=== PATIENT | female | born 1995 | race Caucasian/White ===

== ENCOUNTER 2020-05-25 01:47 | Inpatient (IN) | payer OTHER ==
[2020-05-25] VITALS (12 sets, daily range): BP systolic 93–117; BP diastolic 55–78; PULSE 71–116; TEMP 97.6–98.2
[~2020-05-25] VITALS: Ht 154.9 cm; Wt 55.0 kg
--- NOTE | 2020-05-25 01:45 | NUR ---
PT HERE PER EMS AFTER PRECIPITOUS AT HOME IN BATHROOM WITH PRESENT. PLACENTA IS UNDELIVERED. HOLDS CRYING VIGOROUS BABY.PT ALERT AND RESPONSIVE TO HER NAME. DR ESPOSITO HERE TO ATTEND BABY NOW HANDED OFF TO HER.MODERATE AMT OF BRIGHT RED BLOOD FROM PT VAGINALLY - EXPERIENCING INTENSE BACKACHE VS /-[id number] TOBAR HERE - BED APART FOR EXAM, PLACENTA- OXYTOCIN DRIP STARTED. FUNDUS FIRM 0340 PT HAS RED CIRCULAR RASH ON RT CHEEK, BACK AND NECK. SANDWICHES SEERVED. CORD STAT OBTAINED. LAB CALLED FOR ADMIT WORK.
[2020-05-25] MEDS ORDERED: MOTRIN 800800 MG/TAB PO (02:12)
[2020-05-25 06:27] LABS: BASO % 0.2 % (0.0-2.0); GRAN # 13.4 (1.4-6.5); GRAN % 89.8 % (42.2-75.2); LYMPH # 0.6 (1.2-3.4); LYMPH % 4.3 % (20.0-51.0); MEAN CELL VOLUME 88 fl (80.0-100.0); MEAN CORPUSCULAR HGB CONC 35 g/dl (33.0-37.0); MEAN PLATELET VOLUME 10.4 fl (7.4-10.4); MONO # 0.8 (0.1-0.6); MONO % 5.3 % (1.7-9.3); PLATELET COUNT 174 K/mm3 (130-400); RED BLOOD COUNT 3.14 M/mm3 (4.10-5.30); REDCELL DISTRIBUTION WIDTH-CV 13.1 % (11.5-14.5)
[2020-05-25 06:38] LABS: HEMATOCRIT 27.5 % (37.0-47.0); HEMOGLOBIN 9.5 g/dl (12.5-16.0); MEAN CORPUSCULAR HEMOGLOBIN 30 pg (27.0-31.0)
--- NOTE | 2020-05-25 10:30 | NUR ---
Verified negative COVID-19 test result from [facility].
[2020-05-26 08:00] VITALS: BP 93/62; PULSE 61; TEMP 97.8
--- NOTE | 2020-05-26 12:05 | NUR ---
Initial visit; Patient with nurse, Wrapper Sizer congratulated patient for of daughter and left a prayer card with the intention of returning if patient so chooses.
--- NOTE | 2020-05-26 12:56 | NUR ---
[facility] responded to case management social worker consult. HILARIO collaborated with RN who advised patient gave at home. RN reports no concerns at this time and advised it is protocol to collect a UDS when a patient gives at home. SW met with patient and her , Mundo ([phone]) to review resources and supports. Patient gave SW permission to speak with her while Mundo stayed in the room. Mundo was deployed but was able to come back to spend a couple weeks with the new baby. Mundo advised she has to return to deployment in June. Patient advised she is from [place] and is close with her family there. Patient also states she has a good relationship with her mother in law, who is on her way from [place] to provide support. Patient states she plans to breastfeed and has all needed supplies. Patient reports she has a history of anxiety and depression but declines when SW asks if she would like any services set up while she is here. Patient reports she plans to contact [facility] to set up WIC. Patient denies any concerns about returning home at discharge. No additional needs at this time.
[2020-05-26 16:54] VITALS: BP 108/74; PULSE 73; TEMP 97.6
[2020-05-26 20:30] VITALS: BP 96/59; PULSE 68; TEMP 97.6
[2020-05-27 07:40] VITALS: BP 104/76; PULSE 60; TEMP 97.4
--- NOTE | 2020-05-27 10:13 | NUR ---
Patient's infant's cord blood was negative for illegal drugs in system.
== END 2020-05-27 11:00 | disposition home or self-care (01) | DRG 776 ==
LOC: OB 01:47 → LDR 01:48 → OB 06:31
PROVIDERS: ADMIT Obstetrics & Gynecology
PROC: 0UQMXZZ Repair Vulva, External Approach (ICD-10-PCS; principal; 2020-05-25)
DX: O70.0 First degree perineal laceration during delivery (principal)
CPT/HCPCS: J2590